=== PATIENT | male | born 1975 | race Caucasian/White ===

== ENCOUNTER → 2017-10-30 | Outpatient (CLI) | payer BC ==
--- NOTE | 2017-10-30 13:19 | US ---
EXAMINATION TYPE: US venous doppler duplex LE LT DATE OF EXAM: 10/30/2017 12:49 PM COMPARISON: CLINICAL HISTORY: R22.40 swelling of left lower leg. Bruise with discomfort- no injury. Not on any b lood thinners. No hx of DVT. SIDE PERFORMED: Left TECHNIQUE: The lower extremity deep venous system is examined utilizing real time linear array sonog ivy with graded compression, doppler sonography and color-flow sonography. VESSELS IMAGED: External Iliac Vein (EIV) Common Femoral Vein Deep Femoral Vein Greater Saphenous Vein * Femoral Vein Popliteal Vein Small Saphenous Vein * Proximal Calf Veins (* superficial vessels) Grayscale, color doppler, spectral doppler imaging performed of the deep veins of the lower extremiti es. There is normal flow, compressibility, vascular waveforms. Suboptimal visualization due to patient body habitus Left Leg: Negative for DVT. The setter cold rolling machine called office at end of exam and spoke to Enid regard ing preliminary results. TAWANNA. IMPRESSION: Exam is slightly limited secondary to patient's body habitus although there is no gross evidence of deep venous arthrosis within the left lower extremity.
== END | disposition home or self-care (01) ==
LOC: RADUSWWP 12:21
PROVIDERS: ATTEND Family Medicine
DX: R22.40 Localized swelling, mass and lump, unspecified lower limb (principal)

== ENCOUNTER → 2018-03-28 | Outpatient (CLI) | payer BC ==
[~2018-03-28] MED LIST: ATROPINE SULFATE 0.1 MG/ML 10ML SYRINGE ONE; DOBUTamine DRIP for NUC MED 500 MG in DEXTROSE/WATER 1 250ML.BAG IV ONE
--- NOTE | 2018-03-28 12:27 | ECHOS ---
STRESS ECHOCARDIOGRAM DOBUTAMINE STRESS ECHOCARDIOGRAM DATE OF SERVICE: 03/28/2018 INDICATIONS: Chest pain. MEDICATIONS: BASELINE HEART RATE: 88 BASELINE BLOOD PRESSURE: 195/90 MAXIMUM HEART RATE: 153 MAXIMUM BLOOD PRESSURE: 208/33 85% MPHR: 151 100% MPHR: 178 METS: MAXIMUM STAGE REACHED: TOTAL EXERCISE TIME: CLINICAL INFORMATION: STRESS DATA: Pretesting physical examination showed a heart rate of 88, pressure is 195/90 mmHg. Baseline EKG showed sinus rhythm. Dobutamine infusion at dose of 10 mcg/kg per minute was initiated and increased to 40 mcg/kg per minute per protocol. Max heart rate was 153, which is about 85% of maximum predicted heart rate. Maximum blood pressure was 208/33 mmHg. The EKG did not show any significant ST or T-wave abnormalities concerning for ischemia. ECHOCARDIOGRAM IMAGES: On echocardiogram images from parasternal long axis view, parasternal short axis view, apical 4 chamber and apical 2 chamber view were obtained as a baseline images, at low dose dobutamine infusion, at peak heart rate, as well as on recovery. The echocardiogram images from parasternal long axis view showed that the apex was hypokinetic at peak heart rate. CONCLUSION: 1. Normal EKG in response to dobutamine without any evidence of ST or T-wave changes concerning for ischemia. 2. Abnormal echocardiogram in response to dobutamine with evidence of apical hypokinesia concerning for ischemia. 3. If there is any concern regarding severe underlying coronary artery disease, a different stress test is recommended for better clarification. MMODL / IJN: [id number] /
== END | disposition home or self-care (01) ==
LOC: RADNMMAIN 08:58
PROVIDERS: ATTEND Family Medicine
DX: I11.9 Hypertensive heart disease without heart failure (principal)
CPT/HCPCS: 93351; J1250; Q9950

== ENCOUNTER → 2018-05-17 | Outpatient (CLI) | payer BC ==
[2018-05-17 08:05] LABS: Anisocytosis Slight; HCT 42.9 % (39.0-53.0); HGB 13.9 gm/dL (13.0-17.5); MCH 26.7 pg (25.0-35.0); MCHC 32.5 g/dL (31.0-37.0); MCV 82.2 fL (80.0-100.0); Mean Platelet Volume 6.8; Platelet Count 294 k/uL (150-450); RBC 5.22 m/uL (4.30-5.90); RDW 16.3 % (11.5-15.5); WBC 11.2 k/uL (3.8-10.6)
[2018-05-17 08:27] LABS: Anion Gap 10 mmol/L; Blood Urea Nitrogen 17 mg/dL (9-20); Carbon Dioxide 29 mmol/L (22-30); Chloride 101 mmol/L (98-107); Potassium 4.8 mmol/L (3.5-5.1); Sodium 140 mmol/L (137-145)
== END ==
LOC: LABPAT 07:12
PROVIDERS: ATTEND Internal Medicine Interventional Cardiology
DX: Z01.812 Encounter for preprocedural laboratory examination (principal); I10 Essential (primary) hypertension; R06.02 Shortness of breath
CPT/HCPCS: 36415; 80051; 82565; 84520; 85027

== ENCOUNTER 2018-05-22 11:05 | Day surgery (SDC) | payer BC ==
[2018-05-17 18:22] VITALS: BMI 49.6
[~2018-05-22 11:05] MED LIST changes: +ALPRAZolam 0.25 MG TAB PO PRN; +ALPRAZolam 0.5 MG TAB PO PRN; +ASPIRIN 325 MG TAB PO STA; +ATORVASTATIN 80 MG TAB PO STA; -ATROPINE SULFATE 0.1 MG/ML 10ML SYRINGE ONE; -DOBUTamine DRIP for NUC MED 500 MG in DEXTROSE/WATER 1 250ML.BAG IV ONE; +NITROGLYCERIN SL TABS 0.4 MG TAB SUBLINGUAL PRN; +SODIUM CHLORIDE 0.9% 1,000 ML in EMPTY BAG 1 BAG IV ONE
[2018-05-22 11:27] VITALS: TEMP 98.5
[2018-05-22] MEDS ORDERED: MIDAZOLAM 2 MG/2 ML VIAL IVP ONE (13:27)
[2018-05-22] MEDS ORDERED: LIDOCAINE 2% SYG (PF) 100 MG/5 ML MISCELLANE ONE (13:28)
[2018-05-22] MEDS: VERAPAMIL SYRINGE (5 MG/10 ML) INTRAARTER ONE ×2 (13:30→13:41)
[2018-05-22] MEDS ORDERED: HEPARIN SODIUM 1,000 UN/ML (10ML VL) IV ONE (13:32)
[2018-05-22] MEDS ORDERED: IOPAMIDOL-370 125ML BTL INJ ONE (13:41)
[2018-05-22] MEDS ORDERED: RX INFO: IV CONTRAST WAS GIVEN 1 EACH MISC MISCELLANE PRN (13:45)
[2018-05-22] MEDS ORDERED: SODIUM CHLORIDE 0.9% 1,000 ML IV SCH (13:45)
[2018-05-22 14:47] VITALS: RESP 20
[2018-05-22 15:22] VITALS: BP 110/58; PULSE 97
--- NOTE | 2018-05-22 18:10 | CC ---
CARDIAC CATHETERIZATION REPORT DATE OF SERVICE: 05/22/2018 PERFORMING PHYSICIAN: Kosta Rodriguez MD, piano refinisher. PROCEDURE PERFORMED: 1. Selective right and left coronary angiogram. 2. Left heart catheterization. INDICATION: This is a pleasant 43-year-old gentleman who was experiencing chest discomfort and underwent myocardial perfusion imaging stress test and that revealed apical ischemia. Because of that, a heart catheterization was advised. APPROACH: Right radial artery. COMPLICATIONS: None. LEVEL OF SEDATION: Moderate with sedation length of 15 minutes. PROCEDURE DESCRIPTION: After obtaining informed consent, the patient was brought to the cardiac cathodic protection technician. The right radial artery was cannulated using micropuncture technique. The micropuncture wire passed easily. Then I placed a 6-[place] sheath in the right radial artery. After that I gave the patient 10,000 units of heparin IV and 2 mg of verapamil IA. Subsequently I did selective right and left coronary angiogram using JR4 and JL3.5 catheters. Left heart catheterization was performed using a 6-[place] pigtail catheter. The procedure was completed without any complication. SELECTIVE CORONARY ANGIOGRAM: 1. The RCA is a large-caliber vessel. It is a dominant vessel. It is angiographically normal. 2. The left main is angiographically normal. It bifurcates into left circumflex and left anterior descending artery. The left circumflex is a large-caliber vessel. It is a nondominant vessel. The proximal circumflex is normal. The mid circumflex is normal and gives rise to an OM branch which appeared to be angiographically normal. The circumflex distally appeared to be angiographically normal. 3. Ramus intermedius is angiographically normal. 4. The LAD: The proximal LAD appeared to be normal. The mid LAD and distal LAD are normal as well. HEMODYNAMICS: The left ventricular end-diastolic pressure was 10 mmHg and no gradient was identified across the aortic valve. CONCLUSION: 1. Normal coronary angiogram. 2. Normal left ventricular diastolic function. POST-PROCEDURE MANAGEMENT: Medical treatment. MMODL / IJN: [id number] /
--- NOTE | 2018-05-22 18:16 | LTR ---
DATE OF SERVICE: May 22, 2018 Dear Filemon: Mr. Khris Watts underwent a heart catheterization today and that revealed normal coronaries. I want to thank you again for allowing me to participate in his care and please do not hesitate to call if you have any questions or concerns. Sincerely, ZOIE / NE: [phone] /
== END 2018-05-22 18:35 | disposition home or self-care (01) ==
LOC: CATHCVL 11:05
PROVIDERS: ATTEND Internal Medicine Interventional Cardiology
DX: R94.39 Abnormal result of other cardiovascular function study (principal); R06.02 Shortness of breath; I10 Essential (primary) hypertension; E66.9 Obesity, unspecified; Z68.43 Body mass index [BMI] 50.0-59.9, adult; G51.0 Bell's palsy; E78.00 Pure hypercholesterolemia, unspecified; I25.2 Old myocardial infarction; F17.200 Nicotine dependence, unspecified, uncomplicated; Z82.49 Family history of ischemic heart disease and other diseases of the circulatory system; Z79.899 Other long term (current) drug therapy
CPT/HCPCS: 93458; C1894; J2250; J2001; J1644; Q9967

== ENCOUNTER 2018-09-17 15:36 | Inpatient (IN) | payer BC ==
[2018-09-17 14:44] LABS: ALT 33 U/L (21-72); AST 43 U/L (17-59); Albumin 4.2 g/dL (3.5-5.0); Alkaline Phosphatase 52 U/L (38-126); Anion Gap 7 mmol/L; Blood Urea Nitrogen 15 mg/dL (9-20); Calcium 10.5 mg/dL (8.4-10.2); Carbon Dioxide 32 mmol/L (22-30); Chloride 100 mmol/L (98-107); Glucose 113 mg/dL (74-99); Sodium 139 mmol/L (137-145); Total Bilirubin 1.4 mg/dL (0.2-1.3)
[2018-09-17 14:45] LABS: Potassium 5.5 mmol/L (3.5-5.1)
--- NOTE | 2018-09-17 15:10 | CT ---
EXAMINATION TYPE: CT chest w con DATE OF EXAM: 09/17/2018 COMPARISON: None HISTORY: cough, abnormal cxr CT DLP: 1059.6 mGycm Automated exposure control for dose reduction was used. CONTRAST: CT scan of the chest is performed with IV Contrast, patient injected with 100 mL of Isovue 300. FINDINGS: LUNGS: There is right hilar mass encircling the right mainstem bronchus with obstruction of the right upper lobe bronchus measuring 7.1 x 6.3 x 6.0 cm. There is complete collapse of the right upper lobe . Postobstructive pneumonitis noted. There is also collapse of the right middle lobe. Large right-felipe ed pleural left effusion is noted. Small nodular density left lung base measures 4 mm. MEDIASTINUM: Mass appears to infiltrate the mediastinum. There is right paratracheal adenopathy ident ified measuring 3.3 cm. Subcarinal adenopathy is noted measuring 5.4 x 3.0 cm. There is mass effect u jaycee the superior vena cava with near complete obstruction noted. Correlate for impending SVC syndrome . Precarinal adenopathy measuring 2.6 cm. UPPER ABDOMEN: No significant abnormality appreciated. OTHER: No additional significant abnormality is seen. IMPRESSION: 1. Right hilar mass encircling the right mainstem bronchus and resulting in obstruction of the right upper lobe and right middle lobe bronchi with subsequent collapse. There is mediastinal invasion and/ or adenopathy. Large right-sided pleural effusion noted. The findings are consistent with malignancy.
[2018-09-17] MEDS ORDERED: SODIUM CHLORIDE 0.9% 1,000 ML IV STA (16:53)
[2018-09-17] MEDS ORDERED: SODIUM POLYSTYRENE SULFONATE 15 GM/60 ML BOTTLE PO STA (16:54)
[2018-09-17] MEDS ORDERED: SODIUM CHLORIDE 0.9% 500 ML 500 ML IV STA (16:54)
--- NOTE | 2018-09-17 17:04 | ED ---
General Adult HPI - General Chief complaint: Recheck/Abnormal Lab/Rx Stated complaint: poss mass/fluid on right lung Source: patient Mode of arrival: ambulatory Limitations: no limitations - History of Present Illness Initial comments: This 43-year-old white male since with a complaint of a cough which is been present over the last 8 months intermittently. He states it is been to see his primary care physician on several occasions. He normally will be placed on some antibiotics and a steroid and this will resolve his symptoms but then they will restart approximately 2 weeks after he stops the medications. He just got done with some antibiotics and steroids this past week and his symptoms have now been present over the last 3 days. He denies any fevers, chills, or chest pain. He denies any decrease in energy. He states that he has had approximately 30 pound weight loss since this past summer but he also changed jobs where he is more active. He was seen by his primary care physician today and they did a chest x-ray which apparently showed some fluid on the right side. He was sent for a computed tomography scan of the chest which does show significant findings consistent with likely lung cancer as well as a collapsed lobe among other findings, please see report. He denies any other complaints or modifying factors. He is sent to the ER by his doctor for likely admission. - Related Data Home Medications Medication Instructions Recorded Confirmed Albuterol Inhaler [Ventolin Hfa 1 - 2 puff INHALATION RT-Q6H PRN 05/17/18 Inhaler] Multivitamins, Thera [Multivitamin 1 tab PO DAILY 05/17/18 05/22/18 (formulary)] Varenicline [Chantix Continuing 1 mg PO BID 05/17/18 05/22/18 Pack] Vitamin B Complex 1 each PO DAILY 05/17/18 05/22/18 Ferrous Sulfate [Feosol] 325 mg PO DAILY 09/17/18 09/17/18 Glycopyrrolate/Formoterol Fum 2 puff INHALATION RT-BID 09/17/18 09/17/18 [Bevespi Aerosphere Inhaler] Losartan/Hydrochlorothiazide 1 tab PO DAILY 09/17/18 09/17/18 [Losartan-Hctz 100-25 mg Tab] Magnesium(Unknown) 2 tab PO DAILY 09/17/18 09/17/18 Allergies Allergy/AdvReac Type Severity Reaction Status Date / Time No Known Allergies Allergy Verified 09/17/18 16:34 Review of Systems ROS Statement: Those systems with pertinent positive or pertinent negative responses have been documented in the HPI. ROS Other: All systems not noted in ROS Statement are negative. 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 VITAL SIGNS: Heart rate, blood pressure, respiratory rate reviewed as recorded in nurse's notes. EYES: Pupils are round and reactive. Extraocular movements are intact. No conjunctival / lid redness or swelling. ENT: No external evidence of injury, swelling, or ecchymosis. Airway is patent. Throat is clear. NECK: Nontender. No swelling or evidence of injury. No subcutaneous emphysema. Trachea is midline. No thyroid mass. HEART: Regular rate and rhythm. Good peripheral pulses. LUNGS/CHEST: There is decreased breath sounds noted on the right chest. No ecchymosis, subcutaneous emphysema, or tenderness. ABDOMEN: Abdomen soft without tenderness. No palpable masses or organomegaly. No peritoneal signs. No abdominal wall swelling or ecchymosis. EXTREMITIES: No extremity tenderness. Normal muscle tone and function. No thoracolumbar tenderness. There is no extremity swelling or signs of superior vena cava syndrome. NEUROLOGIC: Sensation is grossly intact. Cranial nerve exam reveals face is symmetrical, tongue is midline, speech is clear. SKIN: No abrasions or ecchymosis is noted. No induration or masses noted. PSYCHIATRIC: Alert and oriented. Appropriate behavior and judgment. Limitations: no limitations Course Vital Signs 09/17/18 15:54 Temperature 98.5 F Pulse Rate 87 Respiratory 18 Rate Blood Pressure 159/85 O2 Sat by Pulse 97 Oximetry Medical Decision Making - Medical Decision Making The patient was seen and examined. All diagnostics were reviewed. The patient did have an outpatient computed tomography scan of the chest and this report does reveal a 7 cm right perihilar lung mass. This right hilar mass encircles the right mainstem bronchus and results in obstruction of the right upper lobe and right middle lobe rhonchi with subsequent collapse. There is mediastinal invasion and/or adenopathy. There is a large right-sided pleural effusion noted. The radiologist relates that these findings are consistent with malignancy. In addition, they do note that there is mass effect upon the superior vena cava with near complete obstruction and they would like to correlate for impending SVC syndrome. There is no clinical signs of superior vena cava syndrome at this time. They also note some pneumonitis and possible extension of the mass into the mediastinum. The possibility of underlying infection is possible he is started on some IV antibiotics. He is also given a DuoNeb breathing treatment. The laboratory came back showing an elevation of his calcium as well as his potassium. He is given some Kayexalate orally as well as some IV fluids. It is felt as though he would require admission to the hospital. He likely will need a bronchoscopy and pulmonary consultation. The case is discussed with Dr. Green and he is agreeable to admission with pulmonology to consult, IV steroids, and IV Unasyn. - Lab Data Result diagrams: 09/17/18 14:00 Lab Results 09/17/18 09/17/18 Range/Units 14:00 14:00 Sodium 139 (137-145) mmol/L Potassium 5.5 H (3.5-5.1) mmol/L Chloride 100 (98-107) mmol/L Carbon Dioxide 32 H (22-30) mmol/L Anion Gap 7 mmol/L BUN 15 (9-20) mg/dL Creatinine 0.75 (0.66-1.25) mg/dL Est GFR (CKD-EPI)AfAm >90 (>60 ml/min/1.73 sqM) Est GFR (CKD-EPI)NonAf >90 (>60 ml/min/1.73 sqM) Glucose 113 H (74-99) mg/dL Calcium 10.5 H (8.4-10.2) mg/dL Total Bilirubin 1.4 H (0.2-1.3) mg/dL AST 43 (17-59) U/L ALT 33 (21-72) U/L Alkaline Phosphatase 52 (38-126) U/L NT-Pro-B Natriuret Pep 46 pg/mL Total Protein 8.0 (6.3-8.2) g/dL Albumin 4.2 (3.5-5.0) g/dL Disposition Clinical Impression: Lung mass, Cough, Hypertension, Obesity, Hyperkalemia, Hypercalcemia, Atelectasis, Pneumonitis, Thoracic lymphadenopathy Disposition: ADMITTED IP TO THIS HOSP Condition: Fair Referrals: Filemon Hurst MD [Primary Care Provider] - 1-2 days Time of Disposition: 17:09 Decision Date: 09/17/18 Decision Time: 17:09
[2018-09-17] MEDS ORDERED: methylPREDNISolone SOD SUCCI 125 MG/2 ML VIAL IV STA (17:10)
[2018-09-17] MEDS ORDERED: AMPICILLIN-SULBACTAM 3 GM in SODIUM CHLORIDE 0.9% 100 ML IVPB STA (17:10)
[2018-09-17] MEDS ORDERED: ONDANSETRON 4 MG/2 ML VIAL IVP PRN (17:11)
[2018-09-17] MEDS ORDERED: ACETAMINOPHEN TAB 325 MG TAB PO PRN (17:11)
[2018-09-17] MEDS ORDERED: IPRATROPIUM-ALBUTEROL 3 ML NEB INHALATION STA (17:15)
[2018-09-17 18:10] LABS: Anisocytosis Slight; Basophils # (A) 0.1 k/uL (0-0.2); Basophils % (A) 1 %; Eosinophils # (A) 0.6 k/uL (0-0.7); Eosinophils % (A) 5 %; HCT 39.6 % (39.0-53.0); HGB 13.1 gm/dL (13.0-17.5); Lymphocytes # (A) 1.2 k/uL (1.0-4.8); Lymphocytes % (A) 10 %; MCH 26.4 pg (25.0-35.0); MCHC 33.1 g/dL (31.0-37.0); MCV 79.8 fL (80.0-100.0); Microcytosis Slight; Monocytes # (A) 0.5 k/uL (0-1.0); Monocytes % (A) 4 %; Neutrophils # (A) 9.4 k/uL (1.3-7.7); Neutrophils % (A) 80 %; Platelet Count 327 k/uL (150-450); RBC 4.97 m/uL (4.30-5.90); RDW 16.3 % (11.5-15.5); WBC 11.8 k/uL (3.8-10.6)
[2018-09-17] MEDS: IPRATROPIUM 0.5 MG/2.5 ML NEBU INHALATION SCH (20:40)
[2018-09-17] MEDS: IPRATROPIUM-ALBUTEROL 3 ML NEB INHALATION SCH (20:40)
[2018-09-17] MEDS: FORMOTEROL FUMARATE 20 MCG/2 ML NEBU INHALATION SCH (20:41)
--- NOTE | 2018-09-17 21:35 | P.CNPUL ---
History of Present Illness Consult date: 09/17/18 Reason for consult: lung mass History of present illness: Is a 43-year-old male patient who presented to the MRSA problem because of increased cough has been going on intermittently over the past 8 months. The patient has seen his primary care physician multiple occasions and he was placed on several rounds of antibiotics and steroids and he would develop only partial response and is symptoms with subsequently recur. He denies having any fever or chills. No reported chest pain. His energy level is low. He is losing weight and he has lost approximately 30 pounds since summer. Chest x- ray was done today and his primary care physician's office and it was abnormal and for that reason the patient was sent and to the hospital. A CAT scan of the chest was done in the emergency department that was significantly abnormal. CAT scan showed a right hilar mass encasing the right mainstem bronchus with obstruction of the right upper lobe bronchus. I was unable to visualize the right upper lobe bronchus and the right upper lobe was completely collapsed. The right hilar mass was approximately 7 x 6.3 x 6 cm in size. There was a concern for a postobstructive pneumonitis. There is also some partial atelectasis of the right middle lobe. The bronchus intermedius is significantly narrowed. There is evidence of extensive compression with probably some endobronchial involvement from the right hilar mass. There is also a moderate-sized right-sided pleural effusion. Small nodular density in the left lung measuring 4 mm in size. As for the mediastinum, right hilar masses infiltrated the mediastinum and there is right paratracheal lymphadenopathy measuring up to 3.3 cm in size. There is subcarinal lymphadenopathy measuring 5.4 x 3 cm in size. There is mass effect upon the superior vena cava and there is also precarinal adenopathy measuring 2.6 cm in size. The findings are highly suggestive of underlying malignancy. Review of Systems Constitutional: Reports weakness, Reports weight loss Eyes: denies as per HPI, denies blurred vision, denies bulging eye, denies decreased vision, denies diplopia, denies discharge, denies dry eye, denies irritation, denies itching, denies pain, denies photophobia, denies loss of peripheral vision, denies loss of vision, denies tunnel vision/blind spots Ears: deny: decreased hearing, ear discharge, earache, tinnitus Ears, nose, mouth and throat: Reports hoarseness Cardiovascular: Reports decreased exercise tolerance, Reports dyspnea on exertion Respiratory: Reports cough, Reports dyspnea, Reports respiratory infections, Reports wheezing Gastrointestinal: Denies abdominal pain, Denies diarrhea, Denies nausea, Denies vomiting Genitourinary: Reports as per HPI Musculoskeletal: Reports as per HPI Musculoskeletal: absent: ankle pain, ankle stiffness, ankle swelling, as per HPI , elbow pain, elbow stiffness, elbow swelling, foot pain, foot stiffness, foot swelling, hand pain, hand stiffness, hand swelling, hip pain, hip stiffness, hip swelling, knee pain, knee stiffness, knee swelling, shoulder pain, shoulder stiffness, shoulder swelling, wrist pain, wrist stiffness, wrist swelling Integumentary: Reports as per HPI Neurological: Reports as per HPI Psychiatric: Reports as per HPI Endocrine: Reports as per HPI Hematologic/Lymphatic: Reports as per HPI Allergic/Immunologic: Reports as per HPI Past Medical History Past Medical History: Hypertension 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 History of Any Multi-Drug Resistant Organisms: None Reported Past Surgical History: Heart Catheterization, Hernia Repair Additional Past Surgical History / Comment(s): eye surgery Past Psychological History: No Psychological Hx Reported Smoking Status: Current every day smoker Past Alcohol Use History: Occasional Past Drug Use History: None Reported - Past Family History Mother Family Medical History: Coronary Artery Disease (CAD) Brother(s) Family Medical History: Congestive Heart Failure (CHF), Renal Disease Medications and Allergies Home Medications Medication Instructions Recorded Confirmed Type Albuterol Inhaler [Ventolin Hfa 1 - 2 puff INHALATION RT-QID PRN 05/17/18 History Inhaler] Multivitamins, Thera [Multivitamin 1 tab PO DAILY 05/17/18 09/17/18 History (formulary)] Varenicline [Chantix Continuing 1 mg PO BID 05/17/18 09/17/18 History Pack] Vitamin B Complex 1 cap PO DAILY 05/17/18 09/17/18 History Ferrous Sulfate [Feosol] 325 mg PO DAILY 09/17/18 09/17/18 History Glycopyrrolate/Formoterol Fum 2 puff INHALATION RT-BID 09/17/18 09/17/18 History [Bevespi Aerosphere Inhaler] Losartan/Hydrochlorothiazide 1 tab PO DAILY 09/17/18 09/17/18 History [Losartan-Hctz 100-25 mg Tab] Magnesium(Unknown) 2 tab PO DAILY 09/17/18 09/17/18 History Allergies Allergy/AdvReac Type Severity Reaction Status Date / Time No Known Allergies Allergy Verified 09/17/18 16:34 Physical Exam Vitals: Vital Signs Temp Pulse Pulse Resp BP BP Pulse Ox 09/17/18 19:52 98.7 F 82 20 185/83 95 09/17/18 19:22 98.8 F 86 18 141/74 96 09/17/18 15:54 98.5 F 87 18 159/85 97 Intake and Output 09/17/18 09/17/18 09/17/18 06:59 14:59 22:59 Other: Weight 184.612 kg GENERAL: The patient is well nourished and well hydrated. EYES: Pupils are round and reactive. Extraocular movements are intact. No conjunctival / lid redness or swelling. ENT: No external evidence of injury, swelling, or ecchymosis. Airway is patent. Throat is clear. NECK: Nontender. No swelling or evidence of injury. No subcutaneous emphysema. Trachea is midline. No thyroid mass. HEART: Regular rate and rhythm. Good peripheral pulses. LUNGS/CHEST: There is decreased breath sounds noted on the right chest. No ecchymosis, subcutaneous emphysema, or tenderness. ABDOMEN: Abdomen soft without tenderness. No palpable masses or organomegaly. No peritoneal signs. No abdominal wall swelling or ecchymosis. EXTREMITIES: No extremity tenderness. Normal muscle tone and function. No thoracolumbar tenderness. There is no extremity swelling or signs of superior vena cava syndrome. NEUROLOGIC: Sensation is grossly intact. Cranial nerve exam reveals face is symmetrical, tongue is midline, speech is clear. SKIN: No abrasions or ecchymosis is noted. No induration or masses noted. PSYCHIATRIC: Alert and oriented. Appropriate behavior and judgment. Results - Laboratory Findings CBC and BMP: 09/17/18 17:52 09/17/18 14:00 Abnormal lab findings: Abnormal Labs 09/17/18 09/17/18 14:00 17:52 WBC 11.8 H MCV 79.8 L RDW 16.3 H Neutrophils # 9.4 H Potassium 5.5 H Carbon Dioxide 32 H Glucose 113 H Calcium 10.5 H Total Bilirubin 1.4 H - Diagnostic Findings CT scan - chest: image reviewed Assessment and Plan Plan: Assessment 1 right hilar mass causing complete obstruction of the right upper lobe, see that can narrowing of the bronchus intermedius with mass effect and airway compromise in addition to evidence of possible postobstructive pneumonic changes involving the right lung specially in the right upper lobe and the right middle lobe area. This mass is measuring 7 x 6 cm in size. There is also associated with significant mediastinal lymphadenopathy and the paratracheal and subcarinal area. The findings are very highly suggestive of primary bronchogenic cancer. 2 right-sided pleural effusion and moderate in size likely associated with the above-mentioned abnormalities. 3 chronic smoker 4 hypertension 5 COPD maintained on a combination of Bevespi and Ventolin rescue inhaler on as- needed basis. 6 [place] palsy 7 obesity with a BMI of 47 8 obstructive sleep apnea with an AHI of 12. Patient is not receiving any CPAP therapy at this point in time. I am This patient will need an immediate bronchoscopy. The findings was spent with the patient at length. He'll be kept nothing by mouth after midnight. The bronchoscopy would likely finding endobronchial extension of the right hilar mass and a diagnosis is to be established. At the same time with a evaluate the patient's airway patency and severely reasonable to consider a stent insertion in the bronchus intermedius if significant airway compromise is noted. Consult hematology oncology. Continue DuoNeb seems [id number]. Cover this patient with IV Unasyn for empiric antibiotic coverage. Cover the patient IV Solu-Medrol. Cover the patient with a combination of Perforomist and Pulmicort overestimates twice a day. May need a thoracentesis for therapeutic purposes at a later stage and this could be also for staging purposes. We'll try to set up this patient to undergo bronchoscopy under general anesthesia and operating room tomorrow. The procedure explained. The patient is agreeable. We'll proceed accordingly.
[2018-09-17] MEDS: ENOXAPARIN 40 MG/0.4 ML SYRINGE SQ SCH (21:52)
[2018-09-17] MEDS: methylPREDNISolone SOD SUCCI 125 MG/2 ML VIAL IV SCH ×2 (21:52→22:03)
[2018-09-17] MEDS: VARENICLINE 1 MG TAB PO SCH (21:53)
[2018-09-17] MEDS ORDERED: ZOLPIDEM 10 MG TAB PO PRN (22:18)
[2018-09-17] MEDS ORDERED: ALPRAZolam 0.25 MG TAB PO PRN (22:50)
[2018-09-17] MEDS ORDERED: CALCIUM CARBONATE 500 MG CHEWABLE PO PRN (22:50)
[2018-09-17] MEDS ORDERED: MAGNESIUM HYDROXIDE 2,400 MG/10 ML CUP PO PRN (22:50)
[2018-09-17] MEDS ORDERED: NALOXONE 0.4 MG/ML 1 ML VIAL IV PRN (22:50)
[2018-09-17] MEDS ORDERED: LACTULOSE 20 GM/30 ML CUP PO PRN (22:50)
[2018-09-17] MEDS ORDERED: TEMAZEPAM 15 MG CAP PO PRN (22:50)
[2018-09-18] MEDS: IPRATROPIUM-ALBUTEROL 3 ML NEB INHALATION SCH ×5 (00:17→20:22)
[2018-09-18] MEDS: AMPICILLIN-SULBACTAM 3 GM in SODIUM CHLORIDE 0.9% 100 ML IVPB SCH ×5 (00:19→23:44)
--- NOTE | 2018-09-18 00:28 | HP ---
HISTORY AND PHYSICAL DATE OF SERVICE: 09/17/2018. PRESENTING COMPLAINT: Cough, short of breath. HISTORY OF PRESENTING COMPLAINT: This is a very pleasant 43-year-old patient who follows with Dr. Hurst. Chronic stable medical conditions include blind in the right eye, hypertension, and left-sided Morrow's palsy. The patient has been a long-standing smoker, now on Chantix for the last 3 months. The patient is following with Dr. Hurst with about 8 months, going off and on for respiratory symptoms, primarily cough, shortness of breath. Found to have sputum production. The patient's appetite has been okay, but has lost about 30 pounds. On the last occasion he went in about 2 weeks ago, yet again was given steroids and antibiotics, felt better and symptoms relapsed. Again went back to see him, whereupon patient was sent down for a CT scan down here. CT scan showed right upper lobe collapse with involvement of the brain mainstem bronchus and also mediastinal growth and right-sided pleural effusion. The patient has some wheezing and cough, some sputum production. Denies any fever and chills. The patient was started on bronchodilators, steroids, and antibiotics for postobstructive pneumonia. Admitted for the same. Pulmonary was consulted. REVIEW OF SYSTEMS: CONSTITUTIONAL: Tired. HEENT: None. RESPIRATORY: As above. CARDIOVASCULAR: None. GENITOURINARY: None. MUSCULOSKELETAL: None. DERMATOLOGICAL, HEMATOLOGIC, LYMPHATICS: None. PSYCHIATRY: None. NEUROLOGIC: Chronic left-sided face weakness from Morrow's. 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 PAST SURGICAL HISTORY: Cardiac catheterization, hernia repair. SOCIAL HISTORY: The patient smoked a pack and a half for many years, stopped 3 months ago. Drinks about 15 drinks a week. , has 3 foster children below the age of 3. Works at [employer] in [place]. FAMILY HISTORY: Coronary artery disease. HOME MEDICATIONS: 1. Vitamin B complex 1 capsule p.o. daily. 2. Chantix 1 mg b.i.d. 3. Multivitamin tablet p.o. daily. 4. Magnesium. 5. Losartan hydrochlorothiazide 100/25 one tab daily. 6. 2 puffs b.i.d. 7. Iron 325 mg p.o. daily. 8. Ventolin HFA 1 to 2 puffs q.i.d. p.r.n. ALLERGIES: None. PHYSICAL EXAMINATION: VITAL SIGNS: On presentation, temperature 98.5, pulse 87, respiratory 18, blood pressure 159/85 pulse ox 97% on room air. GENERAL APPEARANCE: Well built; BMI 47. Sitting up. EYES: Right eye poor vision. Left eye is normal. HEENT: External appearance of nose is normal. Oral cavity normal with left-sided facial muscle weakness. NECK: JVD unable to assess. Mass not palpable. RESPIRATORY: Effort increased. LUNGS: Diminished breath sounds. Prolonged expiration. Expiratory wheezing. CARDIOVASCULAR: 1st and 2nd sounds normal. No edema. ABDOMEN: Soft, nontender. Liver and spleen not palpable. LYMPHATICS: No lymph nodes palpable in the neck or axillae. PSYCHIATRY: Alert and oriented x3. Mood and affect normal. DERMATOLOGIC: Multiple skin tags in the neck present. INVESTIGATIONS: White count 11.8, hemoglobin 13.1, potassium 5.5, BUN 15, creatinine 0.75. CT scan of the chest shows collapse of right upper and middle lobe, mediastinal mass, and right pleural effusion. ASSESSMENT: 1. Patient has right upper middle lobe collapse with involvement of mainstem bronchus, mediastinal mass, strongly suggestive of malignancy associated with right-sided pleural effusion in a smoker. 2. Hyperkalemia. 3. Chronic obstructive pulmonary disease in a smoker. 4. Morbid obesity, BMI 7. 5. 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 6. Essential hypertension. 7. Chronic left Morrow's palsy. 8. possibly acute postobstructive pneumonia. PLAN: Patient is started on bronchodilators and IV steroids. Home medications resumed. Lovenox for DVT prophylaxis. Dr. Valentine was consulted from Pulmonary. Pulmonary plan is to do a bronchoscopy tomorrow. Will also get involvement of Oncology. The results of the CT scan were discussed. Questions were answered. MMODL / IJN: [id number] /
[2018-09-18 07:26] LABS: Glucose,Whole Blood 181 mg/dL (75-99)
[2018-09-18] MEDS: FERROUS SULFATE 325 MG TAB PO SCH (07:41)
[2018-09-18] MEDS: ENOXAPARIN 40 MG/0.4 ML SYRINGE SQ SCH (07:41)
[2018-09-18] MEDS: MAGNESIUM OXIDE 400 MG TAB PO SCH (07:41)
[2018-09-18] MEDS: VARENICLINE 1 MG TAB PO SCH ×2 (07:42→21:00)
[2018-09-18] MEDS: methylPREDNISolone SOD SUCCI 125 MG/2 ML VIAL IV SCH ×4 (07:45→21:00)
[2018-09-18] MEDS: BUDESONIDE 1 MG/2 ML NEBU INHALATION SCH ×2 (07:48→20:22)
[2018-09-18] MEDS: FORMOTEROL FUMARATE 20 MCG/2 ML NEBU INHALATION SCH ×2 (07:48→20:22)
[2018-09-18] MEDS ORDERED: LOSARTAN-HCTZ 50-12.5 MG 1 EACH TAB PO SCH (09:00)
[2018-09-18] MEDS ORDERED: PANTOPRAZOLE 40 MG/10 ML VIAL IV SCH (09:00)
[2018-09-18] MEDS ORDERED: NON-FORMULARY DRUG (Vitamin B Complex [Vitamin B Complex] 1 CAP) PO SCH (09:00)
[2018-09-18 10:10] LABS: Anion Gap 8 mmol/L; Blood Urea Nitrogen 14 mg/dL (9-20); Calcium 10.4 mg/dL (8.4-10.2); Carbon Dioxide 26 mmol/L (22-30); Chloride 104 mmol/L (98-107); Glucose 174 mg/dL (74-99); Magnesium 1.5 mg/dL (1.6-2.3); Phosphorus 3.1 mg/dL (2.5-4.5); Potassium 4.4 mmol/L (3.5-5.1); Sodium 138 mmol/L (137-145)
[2018-09-18 10:57] VITALS: BMI 46.4
[2018-09-18] MEDS: IPRATROPIUM 0.5 MG/2.5 ML NEBU INHALATION SCH ×3 (11:29→21:14)
[2018-09-18] MEDS ORDERED: MULTIVITAMINS, THERA 1 EACH TAB PO SCH (12:00)
[2018-09-18 12:27] LABS: Glucose,Whole Blood 172 mg/dL (75-99)
[2018-09-18] MEDS ORDERED: IV FLUID CONTINUATION 1,000 ML IV ONE ×2 (13:02)
[2018-09-18] MEDS ORDERED: MIDAZOLAM 2 MG/2 ML VIAL IV ONE (13:19)
[2018-09-18] MEDS ORDERED: NEOSTIGMINE 1 MG/ML 10 ML VIAL ONE ×2 (13:26)
[2018-09-18] MEDS ORDERED: ROCURONIUM BROMIDE 10 MG/ML 10 ML VIAL IV ONE (13:26)
[2018-09-18] MEDS ORDERED: LIDOCAINE 1% INJ 10MG/ML (20 ML MDV) ONE ×2 (13:26)
[2018-09-18] MEDS ORDERED: MIDAZOLAM 2 MG/2 ML VIAL ONE ×2 (13:26)
[2018-09-18] MEDS ORDERED: GLYCOPYRROLATE 0.2 MG/ML 2 ML VIAL ONE ×2 (13:26)
[2018-09-18] MEDS ORDERED: PROPOFOL 10 MG/ML 20 ML VIAL IV ONE (13:26)
[2018-09-18] MEDS ORDERED: LACTATED RINGERS 1,000 ML IV ONE ×2 (14:01)
[2018-09-18] MEDS: PROPOFOL 1,000 MG in EMPTY BAG 1 BAG IV SCH ×5 (15:25→22:59)
[2018-09-18 15:27] LABS: Glucose,Whole Blood 186 mg/dL (75-99)
--- NOTE | 2018-09-18 15:55 | P.CONS ---
History of Present Illness - Reason for Consult Consult date: 09/18/18 lung mass Requesting physician: Lorenzo Green - Chief Complaint persistent cough - History of Present Illness Mr. Watts is a very pleasant male who has had a persistent cough x 8 months, he was treated with several courses of antibiotics and steroids with brief resolution of symptoms only to have the cough return. He had a chest xray with identification of a mass which led to his hospitalization. CT chest revealed a right hilar mass encircling the mainstem bronchus with collapse of upper middle lobes and adenopathy. Pt is having bronchoscopy and biopsy today. Pt states a 30lb wt. loss with maintained appetite, he attributed to recent job change and activity level changes. He has had occasional blood in his sputum, denied pain is chest or ribs, dysphagia, odynophagia, changes in bowel or bladder habits, unrealistic fatigue or weakness. No personal Hx of cancer, he previously smoked 1-1.5 ppd, cut way back recently. He had a heart cath and ECHO in May 2018, strong history of cardiac disease in family. Review of Systems 14 point ROS is negative except as stated in HPI Past Medical History Past Medical History: COPD, Hypertension 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 History of Any Multi-Drug Resistant Organisms: None Reported Past Surgical History: Heart Catheterization, Hernia Repair Additional Past Surgical History / Comment(s): eye surgery Past Anesthesia/Blood Transfusion Reactions: No Reported Reaction Past Psychological History: No Psychological Hx Reported Smoking Status: Current every day smoker (1-2 PPD history, currently down to 3 cigarettes a day) Past Alcohol Use History: Occasional (14 beers a week) Past Drug Use History: None Reported - Past Family History Mother Family Medical History: Coronary Artery Disease (CAD) Brother(s) Family Medical History: Congestive Heart Failure (CHF), Renal Disease Medications and Allergies Home Medications Medication Instructions Recorded Confirmed Type Albuterol Inhaler [Ventolin Hfa 1 - 2 puff INHALATION RT-QID PRN 05/17/18 History Inhaler] Multivitamins, Thera [Multivitamin 1 tab PO DAILY 05/17/18 09/17/18 History (formulary)] Varenicline [Chantix Continuing 1 mg PO BID 05/17/18 09/17/18 History Pack] Vitamin B Complex 1 cap PO DAILY 05/17/18 09/17/18 History Ferrous Sulfate [Feosol] 325 mg PO DAILY 09/17/18 09/17/18 History Glycopyrrolate/Formoterol Fum 2 puff INHALATION RT-BID 09/17/18 09/17/18 History [Bevespi Aerosphere Inhaler] Losartan/Hydrochlorothiazide 1 tab PO DAILY 09/17/18 09/17/18 History [Losartan-Hctz 100-25 mg Tab] Magnesium(Unknown) 2 tab PO DAILY 09/17/18 09/17/18 History Allergies Allergy/AdvReac Type Severity Reaction Status Date / Time No Known Allergies Allergy Verified 09/17/18 16:34 Physical Exam Vitals: Vital Signs Temp Pulse Pulse Resp BP BP Pulse Ox 09/18/18 13:08 98.0 F 87 18 145/79 95 09/18/18 11:40 88 09/18/18 11:30 86 09/18/18 08:09 84 09/18/18 07:59 82 09/18/18 07:58 82 09/18/18 07:48 82 09/18/18 07:25 98.0 F 88 16 140/78 95 09/18/18 00:32 88 09/18/18 00:18 92 95 09/17/18 23:00 98.7 F 89 20 174/80 93 L 09/17/18 20:57 86 09/17/18 20:49 86 09/17/18 20:42 86 09/17/18 19:52 98.7 F 82 20 185/83 95 09/17/18 19:22 98.8 F 86 18 141/74 96 09/17/18 15:54 98.5 F 87 18 159/85 97 Intake and Output 09/18/18 09/18/18 09/18/18 06:59 14:59 22:59 Intake Total 100 400 350 Balance 100 400 350 Intake: IV 400 350 Oral 100 Other: Voiding Method Toilet Urinal # Voids 1 2 Weight 182.3 kg - Constitutional General appearance: cooperative, mild distress, morbidly obese - EENT Eyes: anicteric sclerae, EOMI ENT: hearing grossly normal, normal oropharynx - Neck Neck: no lymphadenopathy - Respiratory Respiratory: bilateral: CTA - Cardiovascular Rhythm: regular Heart sounds: normal: S1, S2 Abnormal Heart Sounds: no systolic murmur, no diastolic murmur, no rub, no S3 Gallop, no S4 Gallop, no click, no other leg Peripheral Edema: bilateral: None - Gastrointestinal General gastrointestinal: no absent bowel sounds, no decreased bowel sounds, no distended, no hepatomegaly, no hyperactive bowel sounds, normal bowel sounds, no organomegaly, no rigid, no scaphoid, soft, no splenomegaly, no tenderness, no umbilical hernia, no ventral hernia - Integumentary Integumentary: normal turgor - Neurologic Neurologic: CNII-XII intact - Musculoskeletal Musculoskeletal: strength equal bilaterally - Psychiatric Psychiatric: A&O x's 3, appropriate affect, intact judgment & insight Results CBC & Chem 7: 09/17/18 17:52 09/18/18 09:10 Labs: Abnormal Lab Results - Last 24 Hours (Table) 09/17/18 09/18/18 09/18/18 Range/Units 17:52 07:23 09:10 WBC 11.8 H (3.8-10.6) k/uL MCV 79.8 L (80.0-100.0) fL RDW 16.3 H (11.5-15.5) % Neutrophils # 9.4 H (1.3-7.7) k/uL Glucose 174 H (74-99) mg/dL POC Glucose (mg/dL) 181 H (75-99) mg/dL Calcium 10.4 H (8.4-10.2) mg/dL Magnesium 1.5 L (1.6-2.3) mg/dL 09/18/18 09/18/18 Range/Units 12:25 15:16 WBC (3.8-10.6) k/uL MCV (80.0-100.0) fL RDW (11.5-15.5) % Neutrophils # (1.3-7.7) k/uL Glucose (74-99) mg/dL POC Glucose (mg/dL) 172 H 186 H (75-99) mg/dL Calcium (8.4-10.2) mg/dL Magnesium (1.6-2.3) mg/dL CT scan - chest: report reviewed Assessment and Plan (1) Lung mass Narrative/Plan: Discussed with pt his presentation, history and mass in lung on imaging is highly suspicious for a malignant process. He understands that biopsy is needed for diagnosis. It was explained that additional image is going to be ordered to evaluate the rest of the body for masses/lesions, MRI brain ordered. Did discuss case with Pulmonary. Have requested pleural fluid be sent for cytology for diagnostic purposes, if able to be done. If the fluid is positive for malignancy then pt would be stage IV and PET imaging could be avoided. Current Visit: Yes Status: Acute Priority: High Code(s): R91.8 - OTHER NONSPECIFIC ABNORMAL FINDING OF LUNG FIELD SNOMED Code(s): 312983359 Plan: Attests: I have performed H&P and developed impression and plan of care of patient, discussed with dictator. I agree with dictated note, documented as a scribe.
[2018-09-18 16:02] LABS: ABG Base Excess 2.2 mmol/L; ABG HCO3 28 mmol/L (21-25); ABG PCO2 56 mmHg (35-45); ABG PH 7.31 (7.35-7.45); ABG PO2 113 mmHg (83-108); ABG TCO2 30 mmol/L (19-24)
[2018-09-18 16:04] LABS: ABG Oxygen Saturation 98.3 % (94-97)
--- NOTE | 2018-09-18 16:29 | P.PN ---
Subjective Progress Note Date: 09/18/18 This 43-year-old male patient was seen in consultation yesterday. This afternoon, the patient was taken to the operating room and he was intubated and following that a bronchoscopy was done. The bronchoscopic findings were significantly abnormal. The main danitza was infiltrated with tumor. The right mainstem bronchus was infiltrated with tumor causing a drop in the caliber of the right mainstem bronchus by around 50%. The bronchus intermedius was narrowed with extrinsic compression endobronchial tumor. The right upper lobe bronchus was completely obliterated with tumor. The tumor was fungating and there was significant endobronchial irregularities along the right mainstem bronchus and bronchus intermedius. This episode the tumor was very friable and bleeding. At that point, the bronchial biopsies obtained. Endobronchial brushings and washings were obtained. The patient was extubated operating room , however, he did not tolerate extubation. He became tachypneic and tachycardic and he was having labored breathing. The patient was also desaturating. At that point, we decided to reintubate this patient. He was intubated with a #8 ET tube. Started on Diprivan for sedation. Moved to the intensive care unit. Post intubation chest x-ray shows complete opacification of the right lung. Currently the patient on sedation, comfortable. At times he still having agitation despite being on 65 mics of the prevent. The patient will be started on a combination of Diprivan and fentanyl to improve his synchrony and sedation scale. Meanwhile, the patient is On a mechanical ventilator on assist control mode of ventilation. The patient is on assist control of 20, tidal volume of 600, FiO2 of 100% and a PEEP of 6. Blood gases are still pending for now. Hemodynamically stable. He was started on normal saline at the rate of 75 mL an hour. No significant orotracheal secretions. Occasional bloody mucoid secretions are seen in and orotracheal tube. The family was updated on the patient's condition. I personally spoke to the patient's brother and sister. Objective - Vital Signs Vital signs: Vital Signs Temp 98.0 F 09/18/18 13:08 Pulse 87 09/18/18 13:08 Resp 18 09/18/18 13:08 BP 145/79 09/18/18 13:08 Pulse Ox 95 09/18/18 13:08 Intake & Output 09/17/18 09/18/18 09/18/18 18:59 06:59 18:59 Intake Total 500 750 Balance 500 750 Weight 184.612 kg 182.3 kg 182.3 kg Intake: IV 750 Oral 500 Other: Voiding Method Toilet Toilet Urinal Urinal # Voids 1 2 - Exam She is intubated, comfortable likely distress. No orotracheal and orogastric tube are both in place. Head exam was generally normal. There was no scleral icterus or corneal arcus. Mucous membranes were moist. Neck was supple and without jugular venous distension, thyromegaly, or carotid bruits. Carotids were easily palpable bilaterally. There was no adenopathy. Orogastric and orotracheal tube are both in place. Lungs sounds are absent on the right. There is diminished breath on the left along with some scattered expiratory wheezes mainly along the left lung area along with some few scattered expiratory wheezes or rhonchi. There is obvious progression of expiratory phase of breathing. Right lung is quite silent. Cardiac exam revealed the PMI to be normally situated and sized. The rhythm was regular and no extrasystoles were noted during several minutes of auscultation. The first and second heart sounds were normal and physiologic splitting of the second heart sound was noted. There were no murmurs, rubs, clicks, or gallops. Abdominal exam revealed normal bowel sounds. The abdomen was soft, non-tender, and without masses, organomegaly, or appreciable enlargement of the abdominal aorta. Examination of the extremities revealed easily palpable radial, femoral and pedal pulses. There was no cyanosis, clubbing or edema. Examination of the skin revealed no evidence of significant rashes, suspicious appearing nevi or other concerning lesions. Neurologically the patient is sedated. - Labs CBC & Chem 7: 09/17/18 17:52 09/18/18 09:10 Labs: Abnormal Lab Results - Last 24 Hours (Table) 09/17/18 09/18/18 09/18/18 Range/Units 17:52 07:23 09:10 WBC 11.8 H (3.8-10.6) k/uL MCV 79.8 L (80.0-100.0) fL RDW 16.3 H (11.5-15.5) % Neutrophils # 9.4 H (1.3-7.7) k/uL ABG pH (7.35-7.45) ABG pCO2 (35-45) mmHg ABG pO2 (83-108) mmHg ABG HCO3 (21-25) mmol/L ABG Total CO2 (19-24) mmol/L ABG O2 Saturation (94-97) % Glucose 174 H (74-99) mg/dL POC Glucose (mg/dL) 181 H (75-99) mg/dL Calcium 10.4 H (8.4-10.2) mg/dL Magnesium 1.5 L (1.6-2.3) mg/dL 09/18/18 09/18/18 09/18/18 Range/Units 12:25 15:16 15:53 WBC (3.8-10.6) k/uL MCV (80.0-100.0) fL RDW (11.5-15.5) % Neutrophils # (1.3-7.7) k/uL ABG pH 7.31 L (7.35-7.45) ABG pCO2 56 H (35-45) mmHg ABG pO2 113 H (83-108) mmHg ABG HCO3 28 H (21-25) mmol/L ABG Total CO2 30 H (19-24) mmol/L ABG O2 Saturation 98.3 H (94-97) % Glucose (74-99) mg/dL POC Glucose (mg/dL) 172 H 186 H (75-99) mg/dL Calcium (8.4-10.2) mg/dL Magnesium (1.6-2.3) mg/dL Assessment and Plan Plan: Assessment 1 acute respiratory failure with computed opacification of the right lung post bronchoscopy. The patient currently intubated on a mechanical ventilator. The patient did not tolerate extubation post bronchoscopy. As such the patient was intubated and brought to the intensive care unit. Currently on assist control mode of ventilation. Chest x-ray shows significant opacification of the right lung. This is not completely unexpected. The patient has a large hilar mass with complete collapse of the right upper lobe preoperatively. The bronchoscopic findings were noted. The patient has infiltration of tumor in the main danitza, right mainstem bronchus and bronchus intermedius. The right upper lobe bronchus completely plugged with tumor. The right mainstem bronchus was narrowed significantly down to 50-60% of his usual caliber. The bronchus intermedius is significantly narrowed and the caliber of the airways probably down to 6-7 mm. Endobronchial biopsies were obtained. Brushings were obtained. Right lung lavage was also done. Awaiting final pathologic findings. Highly suspicious for lung cancer. Other the patient's CAT scan of the chest that shown a right hilar mass causing complete obstruction of the right upper lobe, see that can narrowing of the bronchus intermedius with mass effect and airway compromise in addition to evidence of possible postobstructive pneumonic changes involving the right lung specially in the right upper lobe and the right middle lobe area. This mass is measuring 7 x 6 cm in size. There is also associated with significant mediastinal lymphadenopathy and the paratracheal and subcarinal area. The findings are very highly suggestive of primary bronchogenic cancer. 2 right-sided pleural effusion and moderate in size likely associated with the above-mentioned abnormalities. 3 chronic smoker 4 hypertension 5 COPD maintained on a combination of Bevespi and Ventolin rescue inhaler on as- needed basis. 6 Colony palsy 7 obesity with a BMI of 47 8 obstructive sleep apnea with an AHI of 12. Patient is not receiving any CPAP therapy at this point in time. Plan Keep the patient sedated. Continue mechanical ventilation for respiratory support. Keep the patient assist-control mode of ventilation. Increase the PEEP up to 8 and drop the FiO2 as tolerated. Repeat chest x-ray in the morning. May need another bronchoscopy should there be any mucous plugs obstructing the right mainstem and the bronchus intermedius or any blood fragments causing the right lung atelectasis. I'm also entertaining insertion of a metallic Ultraflex stent in the bronchus intermedius right mainstem bronchus area to achieve airway patency. Unfortunately, the patient carries a very poor prognosis based above-mentioned findings. The final pathology findings will be out probably within next 2448 hrs. He is hemodynamically stable. He'll be On a combination of bronchodilators as an antibiotics. We'll continue to follow. Family was updated. Condition is critical. This evolution was on a more than 1 hour excluding time to do any procedures. Time with Patient: Greater than 30
[2018-09-18] MEDS ORDERED: fentaNYL (PF) 2,500 MCG in SODIUM CHLORIDE 0.9% 200 ML IV SCH (16:30)
--- NOTE | 2018-09-18 16:32 | XR ---
EXAMINATION TYPE: XR chest 1V portable DATE OF EXAM: 09/18/2018 COMPARISON: Prior CT chest 09/17/2018 HISTORY: Intubation TECHNIQUE: Single frontal view of the chest is obtained. FINDINGS: Patient is rotated. There is been interval placement of an endotracheal tube, orogastric tu be are overlying appropriate positions. There is opacification right hemithorax. No evident pneumotho rax. There are cardiac leads. Question some perihilar increased attenuation. IMPRESSION: Interval intubation. Opacified right hemithorax. Difficult to exclude left lower lobe at electasis, perihilar increased density in the left.
[2018-09-18 16:40] LABS: Anisocytosis Slight; Basophils % (A) 0 %; Eosinophils # (A) 0.1 k/uL (0-0.7); Eosinophils % (A) 1 %; HCT 37.5 % (39.0-53.0); HGB 11.5 gm/dL (13.0-17.5); Lymphocytes # (A) 0.5 k/uL (1.0-4.8); Lymphocytes % (A) 3 %; MCH 25.1 pg (25.0-35.0); MCHC 30.7 g/dL (31.0-37.0); MCV 81.9 fL (80.0-100.0); Mean Platelet Volume 6.6; Monocytes # (A) 0.3 k/uL (0-1.0); Monocytes % (A) 2 %; Neutrophils # (A) 15.7 k/uL (1.3-7.7); Neutrophils % (A) 94 %; Platelet Count 318 k/uL (150-450); RBC 4.59 m/uL (4.30-5.90); RDW 16.2 % (11.5-15.5); WBC 16.6 k/uL (3.8-10.6)
[2018-09-18] MEDS ORDERED: LORazepam 2 MG/ML INJ IV STA (16:43)
[2018-09-18 17:03] LABS: Magnesium 1.5 mg/dL (1.6-2.3); Phosphorus 5.6 mg/dL (2.5-4.5)
[2018-09-18] MEDS ORDERED: Magnesium Replacement Protocol 1 EACH MISC MISCELLANE PRN (17:10)
--- NOTE | 2018-09-18 17:15 | P.PCN ---
Date of Procedure: 09/18/18 Preoperative Diagnosis: Right lung mass Postoperative Diagnosis: Right upper lobe/hilar mass causing complete opacification of the right upper lobe with loss of the right upper lobe bronchus and significant narrowing of the right mainstem bronchus and bronchus intermedius. The bronchial tumor occupying the main danitza, mainstem bronchus and bronchus intermedius with significant extrinsic compression and endobronchial involvement. Right upper lobe bronchus cannot be identified. Procedure(s) Performed: Flexible bronchoscopy, endobronchial biopsy, and the bronchial brushings, bronchioloalveolar lavage, endobronchial needle aspirate. Anesthesia: GETA Surgeon: Jose Antonio Valentine Estimated Blood Loss (ml): 10 Pathology: other Condition: critical Disposition: ICU Operative Findings: Patient was brought in today operating room. The patient was induced and intubated and placed on mechanical ventilator and this process was done by anesthesia. The patient was intubated by #8 orotracheal tube. As the patient was being mechanically ventilated, a flexible bronchoscope was inserted through the orotracheal tube and was advanced into the lower trachea. Immediately, the main danitza was identified. The danitza was infiltrated with tumor that had a fungating surface and there was some surface necrosis and the area looks very irregular and swollen and friable with areas of superficial bleeding from the tumor surface. The right mainstem bronchus was significantly narrowed. The narrowing was approximately more than 50% of its normal diameter. The right upper lobe bronchus was not identified as the area was completely infiltrated with tumor. The bronchus intermedius was significantly narrowed probably down to 80% of his normal caliber and the estimated diameter of the bronchus intermedius is probably 7-8 mm. The various segments of the right lower lobe and the middle lobe could not be accurately visualized. Note that the right mainstem bronchus and the rhonchus intermedius was having infiltrated with tumor and there was evidence of endobronchial involvement and extrinsic compression. Multiple tumor fragments and mucosal infiltration with tumor was identified throughout these 2 airways. Following this, an examination of the left side was not was essentially within normal limits with a patent left upper lobe bronchus and left lower lobe bronchus and various segments and subsegments. At this point., Endobronchial biopsies of the carinal lesion and the various endobronchial irregularities in the right mainstem bronchus and the bronchus medius was done. This biopsy was done under direct visualization. There was some limited amount of bleeding from the tumor surface. Following that, transbronchial needle aspirate of the right mainstem mucosa/tumor growth was done. I performed and the bronchial brushings of the involved areas and at the end of the procedure infused the right mainstem bronchus with 100 mL of fluid and 25-30 mL of aspirate was obtained and acid was bloody. At the end of the procedure, tapering it was suctioning was done and the bronchoscope was removed. Patient was extubated subsequently by anesthesia. Postextubation, the patient failed. He had absent breath sounds on the right compared to the left. He had x-rays of breathing and he was acutely bronchus spastic and wheezy. At the same time, the patient was having some upper airway obstruction typical of underlying sleep apnea syndrome. He was offered umbo bagging. He was becoming more tachypneic and tachycardic and hypoxic. I had a discussion with anesthesia. We decided to re-intubated patient. After the intubation, hemodynamics and excision agitation improved. The patient got moved to the intensive care unit. Chest x-ray post arrival to the ICU showed complete opacification of the right lung. She was in a good location. Left lung was essentially clear. Awaiting blood gases. Postoperative diagnoses is right lung atelectasis/collapse post bronchoscopy. The patient had significant compromise of the airway. Right upper lobe bronchus was already occluded with tumor. The bronchus to medius and the right mainstem bronchus were heavily involved with endobronchial tumor causing significant airway compromise as very much likely the patient had complete collapse of the right lung post bronchoscopy. We will utilize increased PEEP. May repeat a bronchoscopy within next 24 hours for reevaluation and removal of any respiratory secretions to achieve airway patency. We'll follow. Awaiting final pathologic findings from the biopsies taken today. Family has been updated on his condition.
[2018-09-18 17:22] VITALS: RESP 20
[2018-09-18 17:31] LABS: Amorphous Sediment,Urine Rare /hpf; Appearance,Urine Cloudy (Clear); Bilirubin,Urine Negative (Negative); Blood,Urine Trace (Negative); Color,Urine Yellow; Glucose,Urine (UA) Negative (Negative); Hyaline Casts,Urine 204 /lpf (0-2); Ketones,Urine Negative (Negative); Leukocyte Esterase,Urine Negative (Negative); Mucus,Urine Occasional /hpf; Nitrite,Urine Negative (Negative); PH, Urine 6.5 (5.0-8.0); Protein,Urine 3+ (Negative); RBC,Urine 4 /hpf (0-5); Squamous Epithelial Cell,Urine 1 /hpf (0-4); Urobilinogen,Urine <2.0 mg/dL (<2.0); WBC,Urine 40 /hpf (0-5)
[2018-09-18] MEDS: SODIUM CHLORIDE 0.9% 1,000 ML IV SCH (17:47)
[2018-09-18] MEDS: MAGNESIUM SULFATE-D5W PMX 1 GM in DEXTROSE/WATER 1 100ML.BAG IVPB SCH ×2 (18:40→20:22)
[2018-09-18] MEDS ORDERED: INSULIN ASPART (NovoLOG) 100 UNIT/ML VIAL SQ SCH (20:00)
[2018-09-18] MEDS: CHLORHEXIDINE GLUCONATE 15 ML CUP MUCOUS MEM SCH (20:27)
--- NOTE | 2018-09-18 23:40 | PN ---
PROGRESS NOTE DATE OF SERVICE: 09/18/2018. PRESENTING COMPLAINT: Intubated. INTERVAL HISTORY: This gentleman has been having a few months of respiratory symptoms. Following with the family doctor. Presented with worsening respiratory symptoms. Today underwent a bronchoscopy by Dr. Valentine with whom I discussed the results. The patient has significant disease at the danitza, not able to access the right upper lobe. He did get some tongue tissue diagnosis. The patient subsequently had to be intubated. Currently in the ICU. The patient is both on a fentanyl drip and Diprivan drip. Ventilator settings include FiO2 80 and a PEEP of 8. When I came to see the patient, the patient's family has already left. REVIEW OF SYSTEMS: Patient intubated. CURRENT MEDICATIONS: Reviewed, that include IV Unasyn IV fentanyl drip, IV Diprivan drip, IV Solu-Medrol, bronchodilators. EXAMINATION: Afebrile, pulse 86, respirations 20, blood pressure 90/51, pulse ox 98% on ventilator. GENERAL APPEARANCE: Lying in bed, intubated. EYES: Pupils equal. Conjunctivae normal. HEENT: Endotracheal tube in place. NECK: JVD unable to assess. Mass not palpable. Respiratory effort increased. LUNGS: Diminished breath sounds. CARDIOVASCULAR: Heart sounds muffled. No edema. ABDOMEN: Distended, soft. Liver and spleen not palpable. PSYCHIATRY: Unable to assess. NEUROLOGICAL: Pupils are reactive. Plantars and equivocal. INVESTIGATIONS: White count 16.6, hemoglobin 11.5. Bronchoscopy pictures reviewed with Dr. Valentine. ASSESSMENT: 1. Right upper middle lobe and upper lobe collapse involvement of the mainstem bronchus with post bronchoscopy and clinical findings strongly suggestive of malignancy with right-sided pleural effusion. 2. Acute hypoxic respiratory failure. Patient is currently ventilator assisted. 3. Hyperkalemia, corrected. 4. Chronic obstructive pulmonary disease in a smoker. 5. Morbid obesity, BMI of 17. 6. 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 7. Essential hypertension. 8. Chronic left-sided Morrow's palsy. 9. Acute postoperative pneumonia. PLAN: Prognosis is not good. Discussed with Dr. Valentine. He may decide to do a stent. The patient would even need to be transferred out depending on the clinical course. At the same time, pending biopsy result will guide us which way to go. Consultation also was made to Oncology and depending on the results will go from there. Prognosis guarded. MMODL / IJN: [id number] /
[2018-09-18] MEDS: INSULIN ASPART (NovoLOG) 100 UNIT/ML VIAL SQ SCH (23:46)
[2018-09-18 23:51] LABS: Glucose,Whole Blood 190 mg/dL (75-99)
[2018-09-19] MEDS: IPRATROPIUM-ALBUTEROL 3 ML NEB INHALATION SCH ×4 (00:05→11:47)
[2018-09-19] MEDS: PROPOFOL 1,000 MG in EMPTY BAG 1 BAG IV SCH ×6 (00:11→10:43)
[2018-09-19 04:49] LABS: ABG Base Excess 4.3 mmol/L; ABG HCO3 29 mmol/L (21-25); ABG PCO2 47 mmHg (35-45); ABG PO2 180 mmHg (83-108); ABG TCO2 31 mmol/L (19-24)
[2018-09-19] MEDS: SODIUM CHLORIDE 0.9% 1,000 ML IV SCH (05:39)
[2018-09-19] MEDS: AMPICILLIN-SULBACTAM 3 GM in SODIUM CHLORIDE 0.9% 100 ML IVPB SCH (05:54)
[2018-09-19] MEDS: INSULIN ASPART (NovoLOG) 100 UNIT/ML VIAL SQ SCH (05:54)
[2018-09-19 06:02] LABS: Glucose,Whole Blood 175 mg/dL (75-99)
[2018-09-19 06:19] LABS: Anisocytosis Slight; Basophils % (A) 0 %; Eosinophils # (A) 0.1 k/uL (0-0.7); Eosinophils % (A) 1 %; HCT 35.5 % (39.0-53.0); HGB 11.4 gm/dL (13.0-17.5); Hypochromasia Slight; Lymphocytes # (A) 0.7 k/uL (1.0-4.8); Lymphocytes % (A) 4 %; MCH 26.7 pg (25.0-35.0); MCHC 32.1 g/dL (31.0-37.0); MCV 83.1 fL (80.0-100.0); Mean Platelet Volume 6.3; Monocytes # (A) 0.5 k/uL (0-1.0); Monocytes % (A) 3 %; Neutrophils % (A) 92 %; Platelet Count 288 k/uL (150-450); RBC 4.27 m/uL (4.30-5.90); WBC 15.2 k/uL (3.8-10.6)
[2018-09-19 06:41] LABS: ALT 34 U/L (21-72); AST 14 U/L (17-59); Albumin 3.4 g/dL (3.5-5.0); Alkaline Phosphatase 55 U/L (38-126); Anion Gap 8 mmol/L; Blood Urea Nitrogen 20 mg/dL (9-20); Calcium 10.2 mg/dL (8.4-10.2); Carbon Dioxide 25 mmol/L (22-30); Chloride 104 mmol/L (98-107); Glucose 171 mg/dL (74-99); Magnesium 1.9 mg/dL (1.6-2.3); Phosphorus 5.2 mg/dL (2.5-4.5); Potassium 4.3 mmol/L (3.5-5.1); Sodium 137 mmol/L (137-145); Total Bilirubin 0.5 mg/dL (0.2-1.3); Total Protein 6.6 g/dL (6.3-8.2)
[2018-09-19] MEDS: MAGNESIUM SULFATE-D5W PMX 1 GM in DEXTROSE/WATER 1 100ML.BAG IVPB SCH ×2 (06:53→08:54)
[2018-09-19] MEDS: BUDESONIDE 1 MG/2 ML NEBU INHALATION SCH (07:49)
[2018-09-19] MEDS: FORMOTEROL FUMARATE 20 MCG/2 ML NEBU INHALATION SCH (07:49)
[2018-09-19 08:10] LABS: Glucose,Whole Blood 171 mg/dL (75-99)
[2018-09-19] MEDS: FERROUS SULFATE 325 MG TAB PO SCH (08:14)
[2018-09-19] MEDS: MAGNESIUM OXIDE 400 MG TAB PO SCH (08:15)
[2018-09-19] MEDS: VARENICLINE 1 MG TAB PO SCH (08:18)
[2018-09-19 08:24] VITALS: BP 101/57
[2018-09-19] MEDS: CHLORHEXIDINE GLUCONATE 15 ML CUP MUCOUS MEM SCH (08:56)
[2018-09-19] MEDS: methylPREDNISolone SOD SUCCI 125 MG/2 ML VIAL IV SCH (08:56)
--- NOTE | 2018-09-19 09:22 | XR ---
EXAMINATION TYPE: XR chest 1V portable DATE OF EXAM: 09/19/2018 COMPARISON: 09/18/2018 HISTORY: Tube placement TECHNIQUE: Single frontal view of the chest is obtained. FINDINGS: Patient is rotated. There is been interval placement of an endotracheal tube, orogastric t ube are overlying appropriate positions. There is opacification right hemithorax. No evident pneumoth orax. There are cardiac leads. Left perihilar consolidation and tiny effusion noted. IMPRESSION: 1. Persistent complete opacification of the right hemithorax. This may represent a combination of ple ural fluid and consolidation. Endobronchial lesion or mucous plug in the differential diagnosis. 2. Left-sided consolidation and tiny effusion stable.
[2018-09-19] MEDS ORDERED: CISATRACURIUM 2 MG/ML 5 ML VIAL IV ONE (09:58)
[2018-09-19 10:06] VITALS: TEMP 98.8
--- NOTE | 2018-09-19 10:08 | P.PN ---
Subjective Progress Note Date: 09/19/18 This 43-year-old male patient was seen in consultation yesterday. This afternoon, the patient was taken to the operating room and he was intubated and following that a bronchoscopy was done. The bronchoscopic findings were significantly abnormal. The main danitza was infiltrated with tumor. The right mainstem bronchus was infiltrated with tumor causing a drop in the caliber of the right mainstem bronchus by around 50%. The bronchus intermedius was narrowed with extrinsic compression endobronchial tumor. The right upper lobe bronchus was completely obliterated with tumor. The tumor was fungating and there was significant endobronchial irregularities along the right mainstem bronchus and bronchus intermedius. This episode the tumor was very friable and bleeding. At that point, the bronchial biopsies obtained. Endobronchial brushings and washings were obtained. The patient was extubated operating room , however, he did not tolerate extubation. He became tachypneic and tachycardic and he was having labored breathing. The patient was also desaturating. At that point, we decided to reintubate this patient. He was intubated with a #8 ET tube. Started on Diprivan for sedation. Moved to the intensive care unit. Post intubation chest x-ray shows complete opacification of the right lung. Currently the patient on sedation, comfortable. At times he still having agitation despite being on 65 mics of the prevent. The patient will be started on a combination of Diprivan and fentanyl to improve his synchrony and sedation scale. Meanwhile, the patient is On a mechanical ventilator on assist control mode of ventilation. The patient is on assist control of 20, tidal volume of 600, FiO2 of 100% and a PEEP of 6. Blood gases are still pending for now. Hemodynamically stable. He was started on normal saline at the rate of 75 mL an hour. No significant orotracheal secretions. Occasional bloody mucoid secretions are seen in and orotracheal tube. The family was updated on the patient's condition. I personally spoke to the patient's brother and sister. On 09/19/2018 I'm seeing this patient for a follow-up. Please refer to the events that occurred yesterday following the bronchoscopy. The patient to be intubated and since then the patient has been kept intubated on the mechanical ventilator as the patient developed complete opacification of the right lung. The chest x-ray findings are essentially unchanged this morning and the right lung remains completely opacified. The patient remained on assist control mode of ventilation. He is on a PEEP of 8 with a tidal volume of 600 at the rate of 20. The FiO2 has been weaned down to 50%. Morning blood gases showed a pH of 7.4 with a pCO2 of 47 and pO2 180 and this was on FiO2 of 80%. I discussed the findings with the pathologist. The preliminary diagnoses non-small cell lung cancer and unable to confirm whether the squamous have ordered adenomaca. It is obviously a poorly differentiated carcinoma. The patient is hemodynamically stable. He is sedated with Diprivan and fentanyl drip. The patient is very symptoms with the mechanical ventilator. He remains on a combination of bronchodilators, steroids, IV Unasyn and IV steroids. No significant bronchospasm wheezing. On examination, the right lung is nearly silent compared to the left and there is no significant breath sounds appreciated in the right compared to left. Based on all this, I'm going to repeat a bronchoscopy today to evaluate the right lung findings and decide if there is anything that can be done. A repeat CAT scan of the chest will be also needed to reevaluate the right lung finding and make sure there is no progression of the underlying pleural effusion. Further recommendation is to follow accordingly. Objective - Vital Signs Vital signs: Vital Signs Temp 97.9 F 09/19/18 04:00 Pulse 69 09/19/18 08:10 Resp 20 09/19/18 08:00 BP 101/57 09/19/18 08:00 Pulse Ox 97 09/19/18 08:00 Intake & Output 09/18/18 09/19/18 09/19/18 18:59 06:59 18:59 Intake Total 1190.00 1728.680 180 Output Total 120 625 15 Balance 1070.00 1103.680 165 Weight 182.3 kg 182.8 kg Intake: IV 990 1240 80 Ampicillin-Sulbactam 3 gm 200 In Sodium Chloride 0.9% 100 ml @ 200 mls/hr IVPB Q6HR ANDR[facility] Rx#:[id number] Sodium Chloride 0.9% 1, 225 975 75 000 ml @ 75 mls/hr IV . [id number] [facility] Rx#:[id number] fentaNYL (PF) 2,500 mcg 15 65 5 In Sodium Chloride 0.9% 200 ml @ 100 MCG/HR 10 mls/hr IV .Q24H [facility]RZE[facility] Rx#: [id number] Intake, IV Titration 200.00 488.680 100 Amount Propofol 1,000 mg In 200.00 488.680 100 Empty Bag 1 bag @ Titrate IV .Q0M ANDRZEJ Rx#: [id number] Output: Urine 120 625 15 Other: Voiding Method Indwelling Catheter Indwelling Catheter # Voids 2 - Exam She is intubated, comfortable likely distress. No orotracheal and orogastric tube are both in place. Head exam was generally normal. There was no scleral icterus or corneal arcus. Mucous membranes were moist. Neck was supple and without jugular venous distension, thyromegaly, or carotid bruits. Carotids were easily palpable bilaterally. There was no adenopathy. Orogastric and orotracheal tube are both in place. Lungs sounds are absent on the right. There is diminished breath on the left along with some scattered expiratory wheezes mainly along the left lung area along with some few scattered expiratory wheezes or rhonchi. There is obvious progression of expiratory phase of breathing. Right lung is quite silent. Cardiac exam revealed the PMI to be normally situated and sized. The rhythm was regular and no extrasystoles were noted during several minutes of auscultation. The first and second heart sounds were normal and physiologic splitting of the second heart sound was noted. There were no murmurs, rubs, clicks, or gallops. Abdominal exam revealed normal bowel sounds. The abdomen was soft, non-tender, and without masses, organomegaly, or appreciable enlargement of the abdominal aorta. Examination of the extremities revealed easily palpable radial, femoral and pedal pulses. There was no cyanosis, clubbing or edema. Examination of the skin revealed no evidence of significant rashes, suspicious appearing nevi or other concerning lesions. Neurologically the patient is sedated. - Labs CBC & Chem 7: 09/19/18 05:47 09/19/18 05:47 Labs: Abnormal Lab Results - Last 24 Hours (Table) 09/18/18 09/18/18 09/18/18 Range/Units 09:10 12:25 15:16 WBC (3.8-10.6) k/uL RBC (4.30-5.90) m/uL Hgb (13.0-17.5) gm/dL Hct (39.0-53.0) % MCHC (31.0-37.0) g/dL RDW (11.5-15.5) % Neutrophils # (1.3-7.7) k/uL Lymphocytes # (1.0-4.8) k/uL ABG pH (7.35-7.45) ABG pCO2 (35-45) mmHg ABG pO2 (83-108) mmHg ABG HCO3 (21-25) mmol/L ABG Total CO2 (19-24) mmol/L ABG O2 Saturation (94-97) % Glucose 174 H (74-99) mg/dL POC Glucose (mg/dL) 172 H 186 H (75-99) mg/dL Calcium 10.4 H (8.4-10.2) mg/dL Phosphorus (2.5-4.5) mg/dL Magnesium 1.5 L (1.6-2.3) mg/dL AST (17-59) U/L Albumin (3.5-5.0) g/dL Urine Protein (Negative) Urine Blood (Negative) Urine WBC (0-5) /hpf Amorphous Sediment (None) /hpf Hyaline Casts (0-2) /lpf Urine Mucus (None) /hpf 09/18/18 09/18/18 09/18/18 Range/Units 15:53 16:25 16:25 WBC 16.6 H (3.8-10.6) k/uL RBC (4.30-5.90) m/uL Hgb 11.5 L (13.0-17.5) gm/dL Hct 37.5 L (39.0-53.0) % MCHC 30.7 L (31.0-37.0) g/dL RDW 16.2 H (11.5-15.5) % Neutrophils # 15.7 H (1.3-7.7) k/uL Lymphocytes # 0.5 L (1.0-4.8) k/uL ABG pH 7.31 L (7.35-7.45) ABG pCO2 56 H (35-45) mmHg ABG pO2 113 H (83-108) mmHg ABG HCO3 28 H (21-25) mmol/L ABG Total CO2 30 H (19-24) mmol/L ABG O2 Saturation 98.3 H (94-97) % Glucose (74-99) mg/dL POC Glucose (mg/dL) (75-99) mg/dL Calcium (8.4-10.2) mg/dL Phosphorus 5.6 H (2.5-4.5) mg/dL Magnesium 1.5 L (1.6-2.3) mg/dL AST (17-59) U/L Albumin (3.5-5.0) g/dL Urine Protein (Negative) Urine Blood (Negative) Urine WBC (0-5) /hpf Amorphous Sediment (None) /hpf Hyaline Casts (0-2) /lpf Urine Mucus (None) /hpf 09/18/18 09/18/18 09/19/18 Range/Units 16:57 23:39 04:44 WBC (3.8-10.6) k/uL RBC (4.30-5.90) m/uL Hgb (13.0-17.5) gm/dL Hct (39.0-53.0) % MCHC (31.0-37.0) g/dL RDW (11.5-15.5) % Neutrophils # (1.3-7.7) k/uL Lymphocytes # (1.0-4.8) k/uL ABG pH (7.35-7.45) ABG pCO2 47 H (35-45) mmHg ABG pO2 180 H (83-108) mmHg ABG HCO3 29 H (21-25) mmol/L ABG Total CO2 31 H (19-24) mmol/L ABG O2 Saturation 100.0 H (94-97) % Glucose (74-99) mg/dL POC Glucose (mg/dL) 190 H (75-99) mg/dL Calcium (8.4-10.2) mg/dL Phosphorus (2.5-4.5) mg/dL Magnesium (1.6-2.3) mg/dL AST (17-59) U/L Albumin (3.5-5.0) g/dL Urine Protein 3+ H (Negative) Urine Blood Trace H (Negative) Urine WBC 40 H (0-5) /hpf Amorphous Sediment Rare H (None) /hpf Hyaline Casts 204 H (0-2) /lpf Urine Mucus Occasional H (None) /hpf 09/19/18 09/19/18 09/19/18 Range/Units 05:47 05:47 05:51 WBC 15.2 H (3.8-10.6) k/uL RBC 4.27 L (4.30-5.90) m/uL Hgb 11.4 L (13.0-17.5) gm/dL Hct 35.5 L (39.0-53.0) % MCHC (31.0-37.0) g/dL RDW 16.0 H (11.5-15.5) % Neutrophils # 14.0 H (1.3-7.7) k/uL Lymphocytes # 0.7 L (1.0-4.8) k/uL ABG pH (7.35-7.45) ABG pCO2 (35-45) mmHg ABG pO2 (83-108) mmHg ABG HCO3 (21-25) mmol/L ABG Total CO2 (19-24) mmol/L ABG O2 Saturation (94-97) % Glucose 171 H (74-99) mg/dL POC Glucose (mg/dL) 175 H (75-99) mg/dL Calcium (8.4-10.2) mg/dL Phosphorus 5.2 H (2.5-4.5) mg/dL Magnesium (1.6-2.3) mg/dL AST 14 L (17-59) U/L Albumin 3.4 L (3.5-5.0) g/dL Urine Protein (Negative) Urine Blood (Negative) Urine WBC (0-5) /hpf Amorphous Sediment (None) /hpf Hyaline Casts (0-2) /lpf Urine Mucus (None) /hpf 09/19/18 Range/Units 07:58 WBC (3.8-10.6) k/uL RBC (4.30-5.90) m/uL Hgb (13.0-17.5) gm/dL Hct (39.0-53.0) % MCHC (31.0-37.0) g/dL RDW (11.5-15.5) % Neutrophils # (1.3-7.7) k/uL Lymphocytes # (1.0-4.8) k/uL ABG pH (7.35-7.45) ABG pCO2 (35-45) mmHg ABG pO2 (83-108) mmHg ABG HCO3 (21-25) mmol/L ABG Total CO2 (19-24) mmol/L ABG O2 Saturation (94-97) % Glucose (74-99) mg/dL POC Glucose (mg/dL) 171 H (75-99) mg/dL Calcium (8.4-10.2) mg/dL Phosphorus (2.5-4.5) mg/dL Magnesium (1.6-2.3) mg/dL AST (17-59) U/L Albumin (3.5-5.0) g/dL Urine Protein (Negative) Urine Blood (Negative) Urine WBC (0-5) /hpf Amorphous Sediment (None) /hpf Hyaline Casts (0-2) /lpf Urine Mucus (None) /hpf Assessment and Plan Plan: Assessment 1 acute respiratory failure with computed opacification of the right lung post bronchoscopy. The patient currently intubated on a mechanical ventilator. The patient did not tolerate extubation post bronchoscopy. As such the patient was intubated and brought to the intensive care unit. Currently on assist control mode of ventilation. Chest x-ray shows significant opacification of the right lung. This is not completely unexpected. The patient has a large hilar mass with complete collapse of the right upper lobe preoperatively. The bronchoscopic findings were noted. The patient has infiltration of tumor in the main danitza, right mainstem bronchus and bronchus intermedius. The right upper lobe bronchus completely plugged with tumor. The right mainstem bronchus was narrowed significantly down to 50-60% of his usual caliber. The bronchus intermedius is significantly narrowed and the caliber of the airways probably down to 6-7 mm. Endobronchial biopsies were obtained. Brushings were obtained. Right lung lavage was also done. Awaiting final pathologic findings. Highly suspicious for lung cancer. Other the patient's CAT scan of the chest that shown a right hilar mass causing complete obstruction of the right upper lobe, see that can narrowing of the bronchus intermedius with mass effect and airway compromise in addition to evidence of possible postobstructive pneumonic changes involving the right lung specially in the right upper lobe and the right middle lobe area. This mass is measuring 7 x 6 cm in size. There is also associated with significant mediastinal lymphadenopathy and the paratracheal and subcarinal area. The findings are very highly suggestive of primary bronchogenic cancer. On today's evaluation of 09/19/2018, the right lung findings are essentially unchanged. The right lung is completely opacified. This may be a combination of atelectasis/collapse in addition to the pleural fluid. Based on this, the patient will need another bronchoscopy to evaluate the right lung/mainstem and bronchus intermedius findings. The patient will also need another CAT scan of the chest. Based on that will make further recommendations. May possibly need an intervention in the right lung including endobronchial stent. 2 right-sided pleural effusion and moderate in size likely associated with the above-mentioned abnormalities. 3 chronic smoker 4 hypertension 5 COPD maintained on a combination of Bevespi and Ventolin rescue inhaler on as- needed basis. 6 Heath palsy 7 obesity with a BMI of 47 8 obstructive sleep apnea with an AHI of 12. Patient is not receiving any CPAP therapy at this point in time. Plan The findings were explained to the family. We'll proceed with a CAT scan of the chest. We'll proceed with a bedside bronchoscopy. We'll make further recommendations regarding treatment course. Meanwhile, I discussed look at the samples with the pathologist and the findings are consistent with poorly differentiated carcinoma which is of a non-small cell type. Further staining will be needed to decide if this is squamous cell or adenocarcinoma. Prognosis obviously poor. Right lung remains opacified. We'll make further recommendations with possibly an intervention/and the bronchial stent insertion of the right mainstem/bronchus intermedius or even transferring this patient to a tertiary care center such as [facility] for interventional pulmonology evaluation. We'll continue to follow. Critically care evaluation done more than 35 minutes excluding time to do any procedures. Family was updated. Time with Patient: Greater than 30
--- NOTE | 2018-09-19 11:00 | P.PCN ---
Date of Procedure: 09/19/18 Preoperative Diagnosis: Right lung collapse Postoperative Diagnosis: Right lung collapse secondary to extensive non-small cell lung cancer Procedure(s) Performed: Bronchoscopy with airway inspection. Anesthesia: MAC Surgeon: Jose Antonio Valentine Estimated Blood Loss (ml): 0 Pathology: none sent Condition: critical Operative Findings: Note that the patient had a bronchoscopy yesterday during which endobronchial biopsies were obtained and the pulmonary findings are consistent with non-small cell lung cancer. However, the patient was unable to extubate. Subsequently he had to be reintubated following the procedure and the follow-up chest x-ray showed complete opacification of the right lung. For all this reasons, repeat bronchoscopy was indicated to reevaluate the airway patency specially in light of the complete investigation of the right lung and respiratory failure. This patient was already intubated on a mechanical ventilator. The patient was resuscitated with a combination of Diprivan and fentanyl. 10 mg of Nimbex was given to achieve complete paralysis. The patient was placed on 100% FiO2. Following that, the flexible bronchoscope was passed through the orotracheal tube and an airway inspection was completed while the patient was being adequately oxygenated and ventilated. The tip of the orotracheal tube was seen around 3 cm above the danitza. Immediately, the danitza was identified and similar to the previous findings was involved with excess amount of endobronchial tumor the bronchoscope was moved to the right side. The right mainstem bronchus was narrowed and the right upper lobe bronchus was completely lost and was plugged with tumor. The tumor is probably originating from the right upper lobe going circumferentially to cause endobronchial extension in the right mainstem bronchus and bronchus intermedius. There was some few blood clots within the bronchus intermedius were suctioned out. The underlying airways inspected. There is significant endobronchial and extrinsic compression of the bronchus intermedius to the point where I was unable to identify the right middle lobe and right lower lobe bronchus on today's evaluation. The area was irrigated with saline. The surface of the tumor was friable and there was no evidence of any active bleeding. The procedure was terminated. The bronchoscope was removed. Final diagnoses consistent with extensive endobronchial involvement of the bronchus intermedius and the right mainstem bronchus with non-small cell lung cancer. The patient was kept on a mechanical ventilator. The patient will be transferred to [facility] for a second evaluation by interventional pulmonology to see there is any role for bronchoscopic debulking and stent insertion. Case was discussed with the family and the was agreeable.
[2018-09-19 12:07] LABS: Glucose,Whole Blood 145 mg/dL (75-99)
[2018-09-19 12:10] VITALS: PULSE 75
[2018-09-19] MEDS ORDERED: fentaNYL (PF) 1,000 MCG in SODIUM CHLORIDE 0.9% 80 ML IV SCH (18:00)
--- NOTE | 2018-09-20 16:07 | DS ---
DISCHARGE SUMMARY DATE OF ADMISSION: 09/17/2018. DATE OF TRANSFER: 09/19/2018 FINAL DIAGNOSES: 1. Right upper lobe and middle lobe lung collapse with involvement of the mainstem bronchus with bronchoscopic findings strongly suggestive of progressive malignancy with right-sided pleural effusion. 2. Acute hypoxic respiratory failure, patient requiring ventilator assistance. 3. Hyperkalemia. 4. Chronic obstructive pulmonary disease in a smoker. 5. Morbid obesity BMI 17. 6. Chronic right eye blind from a childhood injury. 7. Essential hypertension. 8. Chronic left-sided Morrow's palsy. 9. Acute post obstructive pneumonia, present on admission. HOSPITAL COURSE: This patient who has been visiting his family doctor for the last 8 months for recurrent respiratory symptoms treated with steroids, antibiotics, yet again presented to his family doctor for the same. Was sent to the ER. Was found to have right upper and middle lobe collapse and also found to have right-sided pleural effusion. Bronchoscopy was done by Dr. Valentine. More details in his notes. Found to have tumor involving the danitza and right upper bronchus. He could not go through the bronchus. The patient after the procedure had to be intubated, requiring high dose of Diprivan. He is also on IV Unasyn and steroids. Also on high dose of IV fentanyl. Decision was made to transfer the patient to [facility]. Dr. Valentine spoke to the interventional concrete inspector there. I spoke to the patient's sister and at the bedside. The patient will be requiring a nurse for transfer as patient keeps waking up and dose of fentanyl has to be adjusted accordingly. The patient remains on ventilator with FiO2 80 and PEEP of 8. EXAMINATION: Temperature 98.8, pulse 69, respiration 20, blood pressure 101/57. The patient is intubated. LUNGS: Diminished breath sounds. Increased respiratory rate. LABS: White count 15.2, hemoglobin 11.4, potassium 4.3. DISPOSITION: [facility]. Accepting service: Intervention concrete inspector ICU. Discussion and discharge planning more than [address] Filemon Hurst. CONSULTATIONS: Dr. Juarez from Oncology and Dr. Valentine from Critical Care. MMODL / IJN: [id number] /
== END 2018-09-19 17:16 | disposition short-term general hospital (02) | DRG 180 ==
LOC: EC 15:36 → 4MS4W 17:11 → 2SICU 09-18 15:16
PROVIDERS: ADMIT Hospitalist; ATTEND Hospitalist
PROC: 0BB38ZX Excision of Right Main Bronchus, Via Natural or Artificial Opening Endoscopic, Diagnostic (ICD-10-PCS; principal; 2018-09-18 14:40)
PROC: 0B938ZX Drainage of Right Main Bronchus, Via Natural or Artificial Opening Endoscopic, Diagnostic (ICD-10-PCS; principal; 2018-09-18 14:40)
PROC: 0BJ08ZZ Inspection of Tracheobronchial Tree, Via Natural or Artificial Opening Endoscopic (ICD-10-PCS; 2018-09-19)
DX: C34.11 Malignant neoplasm of upper lobe, right bronchus or lung (principal); J18.9 Pneumonia, unspecified organism; J96.01 Acute respiratory failure with hypoxia; Z68.42 Body mass index [BMI] 45.0-49.9, adult; J44.0 Chronic obstructive pulmonary disease with (acute) lower respiratory infection; J90 Pleural effusion, not elsewhere classified; J98.11 Atelectasis; E66.01 Morbid (severe) obesity due to excess calories; E83.52 Hypercalcemia; E87.5 Hyperkalemia; F17.210 Nicotine dependence, cigarettes, uncomplicated; G47.33 Obstructive sleep apnea (adult) (pediatric); G51.0 Bell's palsy; H54.61 Unqualified visual loss, right eye, normal vision left eye; I10 Essential (primary) hypertension; Z82.49 Family history of ischemic heart disease and other diseases of the circulatory system; Z79.899 Other long term (current) drug therapy
CPT/HCPCS: 31623; 31624; 31625; 31629; 31645; 36415; 36600; 71045; 71260; 80048; 80053; 81001; 82805; 83735; 83880; 84100; 85025; 87070; 87205; 88104; 88108; 88173; 88305; 88341; 88342; 94002; 94003; 94640; 94760; 96361; 96365; 96375; 99284